=== PATIENT | female | born 1975 | race Caucasian/White ===

== ENCOUNTER → 2017-12-11 | Emergency (ER) | payer OTHER ==
[~2017-12-11] VITALS: Ht 167.6 cm; Wt 63.0 kg
== END | disposition home or self-care (01) ==
LOC: ER 13:56
DX: S61.220A Laceration with foreign body of right index finger without damage to nail, initial encounter (principal); S40.011A Contusion of right shoulder, initial encounter; V41.5XXA Car driver injured in collision with pedal cycle in traffic accident, initial encounter; Y93.89 Activity, other specified; Y92.488 Other paved roadways as the place of occurrence of the external cause; Y99.8 Other external cause status

== ENCOUNTER 2017-12-19 08:08 | Emergency (ER) | payer OTHER ==
[~2017-12-19] VITALS: Ht 167.6 cm; Wt 63.0 kg
== END 2017-12-19 09:11 | disposition home or self-care (01) ==
LOC: ER 08:08
DX: Z48.02 Encounter for removal of sutures (principal)

== ENCOUNTER → 2017-12-20 | Emergency (ER) | payer OTHER ==
[~2017-12-20] VITALS: Ht 167.6 cm; Wt 62.6 kg
== END | disposition home or self-care (01) ==
LOC: ER 08:09
DX: Z48.02 Encounter for removal of sutures (principal)